=== PATIENT | female | born 2000 | race Caucasian/White ===

== ENCOUNTER 2019-07-09 20:26 | Emergency (ER) | payer OTHER ==
[~2019-07-09] VITALS: Ht 165.1 cm; Wt 54.5 kg
[2019-07-09 21:02] LABS: BASOPHILS # (AUTO) 0.1 X10'3 (0-0.2); BASOPHILS % (AUTO) 0.6 % (0-1); EOSINOPHILS # (AUTO) 0.1 X10'3 (0-0.9); EOSINOPHILS % (AUTO) 0.6 % (0-6); HEMATOCRIT 42.4 % (35.0-45.0); HEMOGLOBIN 14.4 g/dl (12.0-16.0); LYMPHOCYTES # (AUTO) 2.2 X10'3 (1.1-4.8); MEAN CORPUSCULAR HEMOGLOBIN 32.6 PG (27.0-31.0); MEAN CORPUSCULAR HGB CONC 33.9 g/dL (33.0-36.5); MEAN CORPUSCULAR VOLUME 96.1 FL (78-98); MEAN PLATELET VOLUME 8.1 FL (7.4-10.4); MONOCYTES # (AUTO) 0.7 X10'3 (0-0.9); MONOCYTES % (AUTO) 6.1 % (2-12); NEUTROPHILS # (AUTO) 8.6 X10'3 (1.8-7.7); NEUTROPHILS % (AUTO) 73.7 % (42-75); PLATELET COUNT 223 X10'3 (140-440); RED BLOOD COUNT 4.41 X10'6 (4.20-5.60); RED CELL DISTRIBUTION WIDTH 13.1 % (11.5-14.5); WHITE BLOOD COUNT 11.7 X10'3 (4.5-11.0)
[2019-07-09] MEDS ORDERED: normal saline 1000ML IV soln IVB ONE (21:05)
[2019-07-09] MEDS ORDERED: ondansetron/PF 4mg/2ml inj IV ONE (21:05)
[2019-07-09] MEDS ORDERED: famotidine/PF 10 mg/ml inj IV ONE (21:05)
[2019-07-09] MEDS ORDERED: pantoprazole 40 MG vial IV ONE (21:05)
[2019-07-09 21:15] LABS: ANION GAP 16 (8-16); BLOOD UREA NITROGEN 15 MG/DL (7-18); BUN/CREATININE RATIO 16.1 (6.6-38.0); CALCIUM 9.9 MG/DL (8.5-10.1); CHLORIDE 106 MMOL/L (99-107); CREATININE 0.93 MG/DL (0.40-0.90); GLUCOSE 89 MG/DL (70-104); POTASSIUM 3.5 MMOL/L (3.5-5.1); SODIUM 144 MMOL/L (135-145); TOTAL CARBON DIOXIDE 21.6 MMOL/L (24-32); eGFR 77 ML/MIN
[2019-07-09 21:16] LABS: ALANINE AMINOTRANSFERASE 56 U/L (12-78); ALBUMIN 5.1 G/DL (3.4-5.0); ALBUMIN/GLOBULIN RATIO 1.3 (1.1-1.5); ALKALINE PHOSPHATASE 87 IU/L (20-180); ASPARTATE AMINO TRANSFERASE 44 U/L (10-37); BILIRUBIN,TOTAL 1.2 MG/DL (0.1-1.0); LIPASE 76 U/L (73-393); TOTAL PROTEIN 8.9 G/DL (6.4-8.2)
[2019-07-09 23:05] LABS: CLARITY,URINE CLOUDY (Clear); COLOR,URINE YELLOW (Yellow); GLUCOSE, URINE NEGATIVE (Neg); KETONES,URINE >=80 mg/dl (Neg); LEUKOCYTE ESTERASE ,URINE NEGATIVE (Neg); NITRITES, URINE NEGATIVE (Neg); OCCULT BLOOD,URINE NEGATIVE (Neg); PROTEIN,URINE 30 mg/dl (Neg)
[2019-07-09 23:07] LABS: URINE HCG NEGATIVE (NEG)
[2019-07-09] MEDS ORDERED: ondansetron/PF 4mg/2ml inj IV STA (23:10)
--- NOTE | 2019-07-09 23:10 | NUR ---
pt c/o nausea and cramping. dr man made aware.
[2019-07-09 23:36] LABS: UA COLLECTION TYPE CLN CATCH MIDSTREAM
[2019-07-09 23:37] LABS: BACTERIA,URINE FEW /HPF (Neg); RBC,URINE NONE SEEN /HPF (0-2); SQUAMOUS EPITHELIAL CELL,UR MANY /LPF (FEW)
[2019-07-09] MEDS ORDERED: ONDA4TAB6 PO (23:41)
--- NOTE | 2019-07-10 00:27 | NUR ---
PT DC READY BUT HAS HYPOTENSION, SO MD ORDERING ADTL IVF.
--- NOTE | 2019-07-10 00:46 | NUR ---
PT REPROTS HER PAIN IS 8 OUT OF 10 AND THAT SHE FEELS LIKE SHE IS GOING TO THROW UP. 74 STILL. MOTHER REMAINS AT BEDSIDE. BP 113/74.
[2019-07-10] MEDS ORDERED: ondansetron/PF 4mg/2ml inj IV ONE (00:55)
[2019-07-10] MEDS ORDERED: morphine 4 MG/ML inj SYRINge IV PRN (00:55)
--- NOTE | 2019-07-10 00:56 | NUR ---
DR NATHAN UPDATED THAT PTS BP NOW 113/74 AND SHE IS ON THE 3RD LITER OF 4 TOTAL ORDERED. PAIN IS 8OUT OF 10 AND SHE IS NAUSEAUS. MD ORDERING CT OF ABD, MORPHINE, AND ZOFRAN
[2019-07-10] MEDS ORDERED: normal saline 1000ML IV soln IVB ONE (01:10)
--- NOTE | 2019-07-10 01:11 | NUR ---
GIVEN MORPHINE 4 MG AND ZOFRAN [address] FOR CT OF ABD.
--- NOTE | 2019-07-10 01:52 | NUR ---
AWAITING CT READ. REMAINS NAUSEAUS. PAIN TO ABDOMEN NOW 6 OUT OF 10 AFTER MSIV 4 MG 1 HR AGO.
--- NOTE | 2019-07-10 02:18 | NUR ---
Dr. Tai updated that CT is read, Pt continues with nasuea. Verbal received for compazine 10 mg IV. Mother remains at bedside. VSS .
[2019-07-10] MEDS ORDERED: proCHLORperazine 10 MG/2 ml inj IV ONE (02:20)
[2019-07-10 02:53] VITALS: BP 112/60
== END 2019-07-10 02:57 | disposition home or self-care (01) ==
LOC: ER 20:27
DX: A08.4 Viral intestinal infection, unspecified (principal); R00.0 Tachycardia, unspecified; F12.90 Cannabis use, unspecified, uncomplicated; Z88.1 Allergy status to other antibiotic agents
CPT/HCPCS: 36415; 74176; 80053; 81001; 81025; 83690; 85025; 96361; 96374; 96375; 96376; 99284; C9113; J0780; J2270; J2405; J3490; J7030

== ENCOUNTER 2019-08-24 13:48 | Emergency (ER) | payer OTHER ==
[~2019-08-24] VITALS: Ht 165.1 cm; Wt 54.5 kg
[~2019-08-24 13:48] MED LIST: ONDA4TAB6 PO
[2019-08-24 13:50] VITALS: BP 102/57
[2019-08-24] MEDS ORDERED: CLIN300C17 PO (15:01)
== END 2019-08-24 15:55 | disposition home or self-care (01) ==
LOC: ER 13:49
DX: J02.0 Streptococcal pharyngitis (principal); A38.9 Scarlet fever, uncomplicated; R21 Rash and other nonspecific skin eruption; F12.90 Cannabis use, unspecified, uncomplicated; Z88.1 Allergy status to other antibiotic agents
CPT/HCPCS: 87077; 87081; 87880; 99283